=== PATIENT | female | born 1980 | race Caucasian/White ===

== ENCOUNTER 2017-01-17 09:33 | Observation (INO) | payer BC, OTHER ==
[2017-01-15 11:07] VITALS: BMI 22.6
[2017-01-17] MEDS ORDERED: Bupivacaine/Epi 0.25%-1:200,000 10 ml PF inj IJ ONE (15:07)
[2017-01-17] MEDS ORDERED: ceFAZolin IV 1 gm in Dextrose 100 ML IVPB ONE (15:07)
[2017-01-17] MEDS ORDERED: Lactated Ringer's 1,000 ML IV ONE ×2 (15:18→17:25)
[2017-01-17] MEDS ORDERED: Midazolam 2 MG/2 ML VIAL ONE (15:19)
[2017-01-17] MEDS ORDERED: Propofol 10 mg/ml Inj (20 ML) ONE (15:19)
[2017-01-17] MEDS ORDERED: ePHEDrine 50 mg/ml Inj ONE (15:52)
[2017-01-17] MEDS ORDERED: Neostigmine Methylsulfate 3mg/3ml Syringe IV ONE (17:25)
[2017-01-17] MEDS ORDERED: Oxycodone/Acetaminophen 5/325 mg Tab PO PRN (17:46)
[2017-01-17] MEDS ORDERED: Morphine 4 MG/ML VIAL IVP PRN (17:46)
[2017-01-17] MEDS ORDERED: Lactated Ringer's 1,000 ML IV SCH (18:00)
[2017-01-17] MEDS: HYDROmorphone 0.5 mg/0.5 ml ISec IVP PRN ×2 (18:30→18:45)
[2017-01-17 21:03] VITALS: RESP 20
[2017-01-17 21:45] LABS: HEMATOCRIT 29.6 % (34.0-47.0); MEAN CELL VOLUME 90.5 fL (81.0-99.0); MEAN CORPUSCULAR HEMOGLOBIN 30.2 pg (27.0-31.0); MEAN CORPUSCULAR HGB CONC 33.3 g/dL (33.0-37.0); MEAN PLATELET VOLUME 7.5 fL (7.2-11.7); RED CELL DISTRIBUTION WIDTH 13.1 % (11.5-14.5); WHITE BLOOD COUNT 18.6 K/uL (4.8-10.8)
--- NOTE | 2017-01-17 23:24 | PCM.SURG1 ---
Surgeon's Initial Post Op Note - Surgeon's Notes Surgeon: Gus Miller MD Social Work Manager: Brianne LUONG Type of Anesthesia: General Endo, Local Pre-Operative Diagnosis: Chronic pelvic pain. Complex ovarian cysts. pelvic mass Operative Findings: Stage 4 Endometriosis / Frozen abdomin. multiple pelvic masses. Bowel adhesions. Endometriosis throughout the abdominal and pelvic cavity. normal bladder anatomy. This is a 36 y/o female with worsening chronic pelvic pain, multiple complex septated large pelvic masses noted on initial workup.. Pt described this pain as debilitating and limiting her daily activity and adversely effecting her quality of life. Following a complete work up at the office which included a U/S, vaginal cultures, hematology and chemistry, decision was made to proceed with a robotic assisted endometriosis excision / ablation, lysis of adhesions, possible ovarian cystectomy. After proper consent was obtained from the patient, she was taken to the operating room, placed in lithotomy position, her legs placed in adjustable stirrups. Careful attention placed to avoid over flexion or over rotation of the lower extremities. She was prepped and draped for a robotic excision of endometriosis. Prior to the start of this procedure, it in anticipation of a very difficult procedure, [employer] technology was utilized to aid in the visualization of both ureters. Ureteral stents were inserted through the cystoscope and iceygreen dye solution was infused through to stents approximately 10 cc in total, 5 cc instilled into each ureter. This dye solution is valuable during the procedure to visualize the course of both ureters. Ji catheter was placed in sterile condition. The patient was examined and was determined to be a virgin with very small introitus opening. Due to anticipated difficulty in the surgical procedure, it was necessary to insert a uterine manipulator. With extreme difficulty, a uterine sound was inserted through the cervix, cervix was dilated gradually, and a Hulka was inserted without any trauma. While tenting the abdominal wall, a veres needle was inserted through the umbilicus and a pneumoperitoneum was obtained with no difficulty. A 1cm vertical incision was made approx. 3 cm above the umbilicus and a trocar and sleeve were introduced. The patient was placed in Trendelenburg position. A robotic camera was introduced and an initial survey of the pelvic cavity revealed extensive peritoneal adhesions with the most extreme presentation of endometriosis extending all the way to the upper abdomen including bowel loops pelvic and abdominal side jordan as well as the bladder surface. A large and complex pelvic mass was noted originating in the left ovary was noted approximately 10 cm in diameter. Additional complex mass was noted from the right ovary approximately 5 cm in diameter. Multiple endometriosis lesions were noted in the posterior cul-de-sac as well as the pelvic sidewall bilaterally. 3 robotic ports were used for the procedure and were inserted through a 5 mm incisions. The first port was inserted on the right side approximately 7 cm cephalad to the superior iliac crest, the second port was placed in a mirror image location on the contralateral side and the third robotic ports was approximately 8 cm lateral to the camera port. An expanded duty dental assistant port was placed through an 8 mm incision approximately 8 cm left lateral to the camera port. Lateral side docking was achieved with the robot with no difficulty. A monopolar shear was inserted through the port on the right side and a PK was inserted through the port on the left side. Meticulous and careful lysis of adhesions as well as antra lysis was slowly carried through until the adhesions on the pelvic sidewall in close cerate the ureters were noted. It was nearly impossible to proceed with the procedure without exploring both ureters. The icygreen grade dye which was initially injected into the ureters through a ureteral stents was helpful in ascertaining the ureter all course the pelvic brain towards the bladder. It was necessary to open the peritoneum and explore both ureters including dissecting the ureters away from the tight adhesions and both pelvic sidewalls. Both ureters were visualized with peristalsis prior to the excision and ablation of endometriosis. Meticulous lysis of adhesions and ablation of endometriosis was accomplished with the cristopher and the PK restoring normal appearing pelvic anatomy and clear cul-de-sac. The pocket / endometrial fold created by adhesions and endometriosis in the cul-de-sac was carefully excised and released off tension. A peritoneal biopsy was sent to pathology. At this time , attention was then turned towards the large left ovarian complex mass. Sharp and blunt dissection was utilized to enucleate this mass from the left ovary intact. The mass was clearly an endometrioma evidence by a thick chocolatey- like material within its cavity. The mass was extracted from the patient's abdomen via and Endo Catch. In a similar fashion the right ovarian complex mass was enucleated and removed from the patient's abdomen both were sent to pathology for analysis. Continuous religious of somewhat normal pelvic anatomy was achieved by completion of meticulous antra lysis of lysis of adhesions. The abdomen was throughout irrigated and cleared of clots and debris. The ureters were once again visualized with peristalsis and excellent hemostasis noted throughout. Flow seal and inter-seed to prevent further adhesions placed over the excision / ablation beds. All instruments were removed under direct visualization; the robotic arms were undocked. Pneumoperitoneum was reduced. Multiple thick keloids from her prior robotic surgery were excised and sent to pathology. The camera port was closed at a fascial layer with a 2-0 vicryl. All skin incisions were closed with a 4-0 monocryl in a subcuticular fashion. Due to the extremely difficult surgical procedure, and diagnostic cystoscopy was completed. A 30 cystoscope was inserted to the urethra the bladder was distended with approximately 300 cc of normal saline. And a survey of the patient's bladder was completed. The trigone as well as the bladder wall were inspected and appeared to be normal. Both ureteral orifices were noted effluxing urine freely. The urethra appeared normal. Prior to incision, patient received prophylactic antibiotics (Ancef), prior to closure, sponge lap and needle count were correct times two. Patient taken to recovery room under stable condition. Of note: This was an extremely difficult surgical procedure requiring extreme level of expertise requiring several hours extra of surgical work due to the difficult and distorted pelvic anatomy as well as abdominal anatomy due to stage IV endometriosis. Post-Operative Diagnosis: Chronic pelvic pain. Complex ovarian cysts. pelvic mass. Endometriosis Stage 4 Operation Performed: Robotic excision of pelvic mass. Robotic Excision of Endometriosis. firefly ureter stenting and injection of dye. Exploration of ureters. Lysis of adhesions. Of note: This was an extremely difficult surgical procedure requiring extreme level of expertise requiring several hours extra of surgical work due to the difficult and distorted pelvic anatomy as well as abdominal anatomy due to stage IV endometriosis. Enterolysis. Cystoscopy Specimen/Specimens Removed: ovarian cyst. Endometriosis. pelvic washing Estimated Blood Loss: EBL {In ML}: 50 Blood Products Given: N/A Drains Used: No Drains Post-Op Condition: Good Date of Surgery/Procedure: 01/17/17 Time of Surgery/Procedure: 17:25
[2017-01-18 00:32] VITALS: O2SAT 98
[2017-01-18 07:24] LABS: MEAN CELL VOLUME 92.3 fL (81.0-99.0); MEAN CORPUSCULAR HEMOGLOBIN 30.4 pg (27.0-31.0); MEAN CORPUSCULAR HGB CONC 32.9 g/dL (33.0-37.0); RED CELL DISTRIBUTION WIDTH 13.3 % (11.5-14.5); WHITE BLOOD COUNT 11.6 K/uL (4.8-10.8)
[2017-01-18 08:33] VITALS: BP 105/65; PULSE 84; TEMP 97.1
--- NOTE | 2017-01-18 12:15 | CP.PCM.DIS ---
Provider - Provider Date of Admission: 01/17/17 17:46 Attending physician: Gus Miller MD Primary care physician: Paul Consults: none Time Spent in preparation of Discharge (in minutes): 40 Diagnosis - Discharge Diagnosis (1) Endometriosis Status: Chronic Comment: see hospital course Hospital Course - Lab Results Lab Results: Most Recent Lab Values WBC 11.6 K/uL (4.8-10.8) H 01/18/17 07:16 RBC 3.03 Mil/uL (3.80-5.20) L 01/18/17 07:16 Hgb 9.2 g/dL (11.0-16.0) L 01/18/17 07:16 Hct 28.0 % (34.0-47.0) L 01/18/17 07:16 MCV 92.3 fL (81.0-99.0) 01/18/17 07:16 MCH 30.4 pg (27.0-31.0) 01/18/17 07:16 MCHC 32.9 g/dL (33.0-37.0) L 01/18/17 07:16 RDW 13.3 % (11.5-14.5) 01/18/17 07:16 Plt Count 324 K/uL (130-400) 01/18/17 07:16 MPV 8.0 fL (7.2-11.7) 01/18/17 07:16 - Hospital Course Hospital Course: Robotic excision of pelvis mass/endometriosis performed by Dr. Miller on 2016. Pt was kept over night to monitor recovery post-op. She was walking, eating, and voiding with no issues the next morning, so she was discharged with instructions to follow up with Dr. Miller at his office in two weeks. She was given a prescription for percocet for pain control. Discharge Exam - Head Exam Head Exam: ATRAUMATIC, NORMAL INSPECTION, NORMOCEPHALIC - Eye Exam Eye Exam: EOMI Pupil Exam: PERRL - Respiratory Exam Respiratory Exam: NORMAL BREATHING PATTERN - GI/Abdominal Exam GI & Abdominal Exam: Normal Bowel Sounds, Soft, Tenderness (appropriate tenderness at surg site) - Extremities Exam Extremities exam: normal inspection - Neurological Exam Neurological exam: Alert, Oriented x3 - Skin Skin Exam: Normal Color, Warm Discharge Plan - Discharge Medications Prescriptions: oxyCODONE/Acetaminophen [Percocet 5/325 mg Tab] 2 tab PO Q8 #40 tab - Follow Up Plan Condition: GOOD Disposition: HOME/ ROUTINE Additional Instructions: Pt stable for discharge per Dr. Miller. Pt will be sent home with prescription for Percocet. She is to follow up with Dr. Miller in his office in two weeks. His office number to schedule an appointment is [phone]. He will give her a call this evening to discuss her surgery. NEWLY PRESCRIBED MEDICATIONS: Percocet 5/325mg, 1-2 tabs by mouth, every 8 hours NEEDED (dispense #40)
[2017-01-18] MEDS ORDERED: Benzocaine/Menthol (Cepacol) Lozenge MT ONE (12:40)
== END 2017-01-18 17:35 | disposition home or self-care (01) ==
LOC: C.SDS 09:33 → MERGE 17:46 → C.9S 17:46 → C.4M 18:23
PROVIDERS: ADMIT Obstetrics & Gynecology; ATTEND Obstetrics & Gynecology
DX: N80.5 Endometriosis of intestine (principal); N80.1 Endometriosis of ovary; N80.3 Endometriosis of pelvic peritoneum; L91.0 Hypertrophic scar; L90.5 Scar conditions and fibrosis of skin; E56.9 Vitamin deficiency, unspecified; R76.8 Other specified abnormal immunological findings in serum
CPT/HCPCS: 11400; 36415; 58662; 85027; 88104; 88305; 88307; 96360; 96361; G0378; J0690; J1170; J1885; J2175; J2250; J2405; J2704; J2710; J3010; J7120